=== PATIENT | male | born 1990 | race Caucasian/White ===

== ENCOUNTER 2017-01-08 21:48 | Emergency (ER) | payer SELFPAY ==
[2017-01-08 21:51] VITALS: BP 148/82; PULSE 81; RESP 16; TEMP 98.3; O2SAT 99
--- NOTE | 2017-01-08 22:34 | PD ---
HPI Chief Complaint: head injury Time Seen by Provider: 22:26 Travel History International Travel<30 days: No Contact w/Intl Traveler<30days: No Traveled to known affect area: No History of Present Illness HPI 26-year-old white male presents to emergency department for evaluation of a headache injury. The patient states that he was out drinking earlier last evening. He states that he fell backwards on the concrete hitting his head sometime around 3 AM. His friend stated that he had lost consciousness. His eyes rolled back in his head. They called police and the EMS responded. The patient states that he does not remember the incidents but he was told that he was cleared at the scene. He states that he had been taken home but does not recall the surrounding events. The last thing he remembers was drinking last evening and waking up at 8 AM. The patient went to work today but states that he's been having persistent headache, nausea, decreased appetite, slight dizziness, decreased sensation on the left side of his tongue, and decreased hearing out of his left ear. He denies any focal weakness. No extremity injury. No trunk or abdomen injury. No diplopia. No blurred vision. COUNT INCLUDES THE [facility] Past Medical History Medical History: Denies Significant Hx Tetanus Vaccination: < 5 Years Past Surgical History Surgical History: No Previous Surgery Social History Alcohol Use: Yes Tobacco Use: No Substance Use: No Allergies-Medications (Allergen,Severity, Reaction): Coded Allergies: No Known Allergies (Unverified , 01/08/17) Reported Meds & Prescriptions Reported Meds & Active Scripts Active No Active Prescriptions or Reported Medications Review of Systems Except as stated in HPI: all other systems reviewed are Neg Physical Exam Narrative GENERAL: Well-developed, well-nourished in no apparent distress. Nontoxic appearing. HEAD: Normocephalic, tender posterior occiput. EYES: Pupils equal round and reactive. Extraocular motions intact. No scleral icterus. No injection or drainage. ENT: Nose clear. Throat without erythema, tonsillar hypertrophy or exudate. Uvula midline. Airway patent. NECK: Trachea midline. Supple, nontender, moves head freely. No central bony tenderness or spasm. CARDIOVASCULAR: Regular rate and rhythm without murmurs, gallops, or rubs. RESPIRATORY: Clear to auscultation. Breath sounds equal bilaterally. No wheezes , rales, or rhonchi. GASTROINTESTINAL: Abdomen soft, non-tender, nondistended. No hepato-splenomegaly , or palpable masses. No guarding. EXTREMITIES: No clubbing, cyanosis, or edema. No joint tenderness. BACK: Nontender without deformity. No flank tenderness. NEUROLOGICAL: Awake, alert and oriented x 3 .Cranial nerves grossly intact. Motor and sensory grossly within normal limits. Normal speech. Data Data Last Documented VS Vital Signs Date Time Temp Pulse Resp B/P Pulse Ox O2 Delivery O2 Flow Rate FiO2 01/08/17 21:51 98.3 81 16 148/[address] Brain W/O Iv Contrast(Rout) (01/08/17 22:17) MDM Medical Decision Making Medical Screen Exam Complete: Yes Emergency Medical Condition: Yes Medical Record Reviewed: Yes Interpretation(s) CT brain: Negative for acute trauma Differential Diagnosis MDM: High Differential diagnoses: Fracture, sprain, strain, dislocation, contusion, neurovascular injury, head injury Narrative Course Patient has sustained a concussion. CT scan is negative for trauma. Diagnosis Primary Impression: Closed head injury Qualified Code: S09.90XA - Closed head injury, initial encounter Additional Impression: Concussion Qualified Code: S06.0X1A - Concussion, with LOC of 30 min or less, initial encounter Patient Instructions: General Instructions Departure Forms: Tests/Procedures, Work Release Special Instructions: No work 2 days. Additional Instructions: Rest. Head precautions. Tylenol for pain. Ice packs. Avoid alcohol. Avoid all sedating or intoxicating substances. Recheck with your physician within 2-3 days. Return to the ER for any problems. Med/Other Pt SpecificInfo: Prescription(s) given Scripts No Active Prescriptions or Reported Meds Disposition: 01 DISCHARGE HOME Condition: Stable Fei Urbano January 08, 2017 22:34
--- NOTE | 2017-01-08 22:45 | RADRPT ---
EXAM DATE/TIME: 01/08/2017 22:28 [facility] COMPARISON: No previous studies available for comparison. INDICATIONS : Patient states he fell and hit back of head. Positive LOC. Complains of trouble hearing and numbness of left side of head. RADIATION DOSE: 56.35 CTDIvol (mGy) MEDICAL HISTORY : None SURGICAL HISTORY : None. ENCOUNTER: Initial ACUITY: 1 day PAIN SCALE: 5/10 LOCATION: cranial TECHNIQUE: Multiple contiguous axial images were obtained of the head. Using automated exposure control and adj ustment of the mA and/or kV according to patient size, radiation dose was kept as low as reasonably a chievable to obtain optimal diagnostic quality images. FINDINGS: CEREBRUM: The ventricles are normal for age. No evidence of midline shift, mass lesion, hemorrhage or acute in farction. No extra-axial fluid collections are seen. POSTERIOR FOSSA: The cerebellum and brainstem are intact. The 4th ventricle is midline. The cerebellopontine angle i s unremarkable. EXTRACRANIAL: The visualized portion of the orbits is intact. SKULL: The calvaria is intact. No evidence of skull fracture. CONCLUSION: Normal examination. Neftali Mary MD on January 08, 2017 at 22:41 Board Certified Radiologist. This report was verified electronically.
[2017-01-08] MEDS ORDERED: ZOFR4TAB PO (22:53)
== END 2017-01-08 23:35 | disposition home or self-care (01) ==
LOC: NEPK 21:48
DX: S06.0X0A Concussion without loss of consciousness, initial encounter (principal); W22.8XXA Striking against or struck by other objects, initial encounter; W18.39XA Other fall on same level, initial encounter; Y93.9 Activity, unspecified; Y92.9 Unspecified place or not applicable; Y99.9 Unspecified external cause status
CPT/HCPCS: 70450